=== PATIENT | male | born 1970 | race Caucasian/White ===

== ENCOUNTER → 2020-10-04 | Outpatient (CLI) | payer OTHER ==
--- NOTE | 2020-10-04 09:07 | REP ---
INDICATION: HX DVT, RECENT SYMPTOMS, R/O DVT COMPARISON: None. TECHNIQUE: Che scale and color Doppler evaluation left lower extremity using linear high frequency transducer. FINDINGS: Ultrasound examination of the left lower extremity deep venous structures from the common femoral vein to the popliteal vein demonstrates normal compressibility flow and wave patterns in response to respiration and augmentation. There is no evidence for deep venous thrombosis. Incidental duplicated mid superficial femoral vein noted. IMPRESSION: No evidence for deep venous thrombosis. <Electronically signed by Indio Grider > 10/04/20 0994
== END ==
LOC: M RAD 07:47
PROVIDERS: ATTEND Physician Assistant Medical
DX: Z86.718 Personal history of other venous thrombosis and embolism (principal)